=== PATIENT | male | born 1975 | race Caucasian/White ===

== ENCOUNTER 2016-12-19 12:34 | Emergency (ER) | payer MEDICARE, MEDICAID ==
[2016-12-19 12:43] VITALS: BP 142/86
--- NOTE | 2016-12-19 13:31 | ER Document Report ---
HPI - HPI Pain Level: 4 Context: Patient is a 41-year-old male who comes to the office complaining of chronic lower back pain without injury. Pain is been bothering for the last 6-8 months. Patient states that he did have an x-ray back in July with his family doctor but does not remember the results. The pain is made worse with lifting and twisting. Patient is still able to perform activities of daily living without any problems. Patient has been taking Tylenol for his pain with minimal relief. He has not had any loss of control of bowel or bladder. The pain does not radiate into his legs. He does not have any numbness or tingling. Patient denies any chest pain, trouble breathing, shortness of breath , palpitations, syncope, dizziness, fever, abdominal pain, N/V/D/C, dysuria, hematuria, flank pain, rash. - ROS Notes: REVIEW OF SYSTEMS: CONSTITUTIONAL : Denies fever, chills, or sweats. Denies recent illness. EENT: Denies eye, ear, throat, or mouth pain or symptoms. Denies nasal or sinus congestion or discharge. Denies throat, tongue, or mouth swelling or difficulty swallowing. CARDIOVASCULAR: Denies chest pain. Denies palpitations or racing or irregular heart beat. Denies ankle edema. RESPIRATORY: Denies cough, cold, or chest congestion. Denies shortness of breath, difficulty breathing, or wheezing. GASTROINTESTINAL: Denies abdominal pain or distention. Denies nausea, vomiting , or diarrhea. Denies blood in vomitus, stools, or per rectum. Denies black, tarry stools. Denies constipation. GENITOURINARY: Denies difficulty urinating, painful urination, burning, frequency, blood in urine, or discharge. MUSCULOSKELETAL: back pain as in HPI. SKIN: Denies rash, lesions or sores. HEMATOLOGIC : Denies easy bruising or bleeding. LYMPHATIC: Denies swollen, enlarged glands. NEUROLOGICAL: Denies confusion or altered mental status. Denies passing out or loss of consciousness. Denies dizziness or lightheadedness. Denies headache. Denies weakness or paralysis or loss of use of either side. Denies problems with gait or speech. Denies sensory loss, numbness, or tingling. Denies seizures. PSYCHIATRIC: Denies anxiety or stress. Denies depression, suicidal ideation, or homicidal ideation. ALL OTHER SYSTEMS REVIEWED AND NEGATIVE. Dictation was performed using [employer] voice recognition software - CARDIOVASCULAR Cardiovascular: DENIES: Chest pain - DERM Skin Color: [place] Past Medical History - Social History Smoking Status: Current Every Day Smoker Chew tobacco use (# tins/day): No Frequency of alcohol use: None Drug Abuse: None Family History: Reviewed & Not Pertinent Patient has suicidal ideation: No Patient has homicidal ideation: No Renal/ Medical History: Denies: Hx Peritoneal Dialysis Vertical Provider Document - CONSTITUTIONAL Notes: PHYSICAL EXAMINATION: GENERAL: Well-appearing, well-nourished and in no acute distress. HEAD: Atraumatic, normocephalic. NECK: Normal range of motion, supple without lymphadenopathy LUNGS: Breath sounds clear to auscultation bilaterally and equal. No wheezes rales or rhonchi. HEART: Regular rate and rhythm without murmurs, rubs, gallops. ABDOMEN: Soft, nontender, nondistended abdomen. No guarding, no rebound. No masses appreciated. Normal bowel sounds present. No CVA tenderness bilaterally. Back: No abrasion, laceration, ecchymosis, or deformity noted. FROM to passive/ active. Strength 5+/5. + tenderness to palpation of the L3-5 paraspinal muscles /facets. No SI jt tenderness. Musculoskeletal: FROM to LE's b/l to passive/active. Strength 5+/5. SLR negative b/l. Reflexes 2+ to patellar and achilles. Clonus negative. Extremities: No cyanosis, clubbing, or edema b/l. Peripheral pulses 2+. Capillary refill less than 3 seconds. NEUROLOGICAL: Cranial nerves grossly intact. Normal speech, normal gait. Normal sensory, motor exams PSYCH: Normal mood, normal affect. SKIN: Warm, Dry, normal turgor, no rashes or lesions noted. - INFECTION CONTROL TRAVEL OUTSIDE OF THE [place] IN LAST 30 DAYS: No - RESPIRATORY O2 Sat by Pulse Oximetry: 97 Course - Re-evaluation Re-evalutation: 12/19/16 14:13 Patient is a 41-year-old male who presents with ongoing chronic back pain. Vitals are stable with an elevated blood pressure reading. Patient is in no acute distress. PE is unremarkable except for point tenderness noted on exam for the lower back. After performing a Medical Screening Examination, I estimate there is LOW risk for EXPANDING OR RUPTURED ABDOMINAL AORTIC ANEURYSM, CAUDA EQUINA SYNDROME, EPIDURAL MASS LESION, or HERNIATED DISK CAUSING SEVERE SPINAL STENOSIS, thus I consider the discharge disposition reasonable. I have reevaluated this patient multiple times and no significant life threatening changes are noted. The patient and I have discussed the diagnosis and risks, and we agree with discharging home and close follow-up. We also discussed returning to the Emergency Department immediately if new or worsening symptoms occur with the understanding that symptoms and presentations can change. We have discussed the symptoms which are most concerning (e.g., saddle anesthesia, urinary or bowel incontinence or retention, changing or worsening pain) that necessitate immediate return. - Vital Signs Vital signs: Temp Pulse Resp BP Pulse Ox 97.9 F 83 16 142/86 H 97 12/19/16 12:42 12/19/16 12:42 12/19/16 13:21 12/19/16 12:42 12/19/16 12:42 Discharge - Discharge Clinical Impression: Low back pain, Elevated blood pressure reading Condition: Stable Disposition: HOME, SELF-CARE Instructions: Low Back Pain ([facility]), Ice Packs ([facility]), Warm Packs ([facility]) Additional Instructions: Chronic back pain: Light stretches daily Ice/heat throughout the day Massage may help Tylenol/meloxicam as needed for pain Return with any worsening pain, loss of control of bowel/bladder, numbness/ tingling, muscle weakness, fever, abdominal pain. F/u with your PCM in 2-3 days for a recheck and continued care for your back pain. Elevated blood pressure: Low sodium diet Smoking cessation as reviewed Routinely monitor blood pressure and keep a log at your home Report this information to your PCM at f/u appointment. Low Back Pain Three out of every four people will have an episode of disabling back pain during their lifetime. Most commonly the pain is due to straining of the muscles and ligaments in the low back. Usual treatment includes: (1) Rest on a firm surface. Avoid lying on your stomach. (2) Ice pack the painful area. After a few days, gentle heat may be used intermittently to relax the area, or ice packs can be continued. (3) Medication may be needed -- muscle relaxers and antiinflammatory medicines are commonly used. (4) As the back improves, exercises are prescribed to strengthen the back and abdominal muscles. Your doctor will advise you on the proper care for your back at each stage in your recovery. You may be better in a few days -- or healing may take several weeks. If new symptoms of a "herniated disc" (radiation of pain, numbness, or tingling down the back of the leg or weakness in the leg) occur, you should be re-examined. Further testing may be necessary. Prescriptions: Meloxicam 7.5 mg PO BID PRN #30 tablet PRN Reason:
== END 2016-12-19 14:13 | disposition home or self-care (01) ==
LOC: ER 12:34
DX: G89.29 Other chronic pain (principal); M54.5 Low back pain; R03.0 Elevated blood-pressure reading, without diagnosis of hypertension; F17.200 Nicotine dependence, unspecified, uncomplicated
CPT/HCPCS: 99283

== ENCOUNTER 2017-04-21 19:02 | Emergency (ER) | payer MEDICARE, MEDICAID ==
[2017-04-21 19:13] VITALS: BP 145/75
--- NOTE | 2017-04-21 19:19 | ER Document Report ---
ED Fall - General Chief Complaint: Fall Stated Complaint: FALL,NO KNOWN INJURIES Time Seen by Provider: 04/21/17 19:18 Mode of Arrival: Medic Information source: Patient Notes: 41 yo male [facility] iw[facility] right leg [employer] [place] [employer] [place]. Called EMS [place] when he got out his right leg from knee down was numb and caused him fall again, had to drag self with left leg. No pain anywhere. Occasional nausea since. No saddle anesthesia. Lives in [facility]-lives with father. TRAVEL OUTSIDE OF THE [place] IN LAST 30 DAYS: No - HPI Occurred: Just prior to arrival - Related data Allergies/Adverse Reactions: No Known Allergies Allergy (Verified 04/21/17 19:14) Home Medications: Current Home Medications No Home Medications 04/21/17 [History] Past Medical History - General Information source: Patient - Social History Smoking Status: Current Every Day Smoker Frequency of alcohol use: None Drug Abuse: None Occupation: unemployed Lives with: Parents - father Family History: Reviewed & Not Pertinent - Medical History Notes: slow learner-disability, chromosome problem Renal/ Medical History: Denies: Hx Peritoneal Dialysis Musculoskeltal Medical History: Reports Other - chronic intermittent back problems due to "my weight" Review of Systems - Review of Systems Constitutional: No symptoms reported EENT: No symptoms reported Cardiovascular: No symptoms reported Respiratory: No symptoms reported Gastrointestinal: No symptoms reported Genitourinary: No symptoms reported Male Genitourinary: No symptoms reported Musculoskeletal: No symptoms reported Skin: No symptoms reported Hematologic/Lymphatic: No symptoms reported Neurological/Psychological: See HPI Physical Exam - Vital signs Vitals: Resp 20 04/21/17 19:05 Interpretation: Normal, Tachycardic - 107 - General General appearance: Appears well, Alert In distress: None - HEENT Head: Normocephalic, Atraumatic Eyes: Normal Pupils: PERRL - Respiratory Respiratory status: No respiratory distress Chest status: Nontender Breath sounds: Normal Chest palpation: Normal - Cardiovascular Rhythm: Regular Heart sounds: Normal auscultation Murmur: No - Abdominal Inspection: Normal Distension: No distension Bowel sounds: Normal Tenderness: Nontender Organomegaly: No organomegaly - Back Back: Normal, Nontender - Extremities General upper extremity: Normal inspection, Nontender, Normal color, Normal ROM , Normal temperature General lower extremity: Tender - bruise anterior mid right tibia, Normal color , Normal ROM, Normal temperature, Normal weight bearing - pt able to bear weight and walkd after known negative xray. No: Komal's sign - Neurological Neuro grossly intact: Yes Cognition: Normal Orientation: AAOx4 [place] Coma Scale Eye Opening: Spontaneous [place] Coma Scale Verbal: Oriented [place] Coma Scale Motor: Obeys Commands [place] Coma Scale Total: 15 Speech: Normal Motor strength normal: LUE, RUE, LLE, RLE Sensory: Normal - Psychological Associated symptoms: Normal affect, Normal mood - Skin Skin Temperature: Warm Skin Moisture: Dry Skin Color: Normal Course - Re-evaluation Re-evalutation: 04/21/17 21:08 xray negative 04/21/17 21:16 pt able to walk without numbness. theo wrap given. pt states he will walk home, has motrin at home - Vital Signs Vital signs: Temp Pulse Resp BP Pulse Ox 98.3 F 107 H 18 145/75 H 99 04/21/17 19:11 04/21/17 19:11 04/21/17 19:11 04/21/17 19:11 04/21/17 19:11 Discharge - Discharge Clinical Impression: Contusion of right tibia, parathesia Condition: Good Disposition: HOME, SELF-CARE Instructions: Acetaminophen, Theo Wrap ([facility]), Contusion ([facility]), Use of Over-The- Counter Ibuprofen ([facility]) Additional Instructions: to er if worse theo wrap for comfort referral to orthopedics for persistant problems Referrals: LUCILA BURDICK MD [Primary Care Provider] - Follow up as needed KRISTEL SCHULTE MD [ACTIVE STAFF] - Follow up as needed
--- NOTE | 2017-04-21 20:40 | RADIOLOGY REPORT (SQ) ---
EXAM DESCRIPTION: TIBIA FIBULA RIGHT COMPLETED DATE/TIME: 04/21/2017 8:04 pm REASON FOR STUDY: injury mid right tibia COMPARISON: None. NUMBER OF VIEWS: Two views. TECHNIQUE: Two radiographic images acquired of the right tibia and fibula to include the knee and an kle in at least one projection. LIMITATIONS: None. FINDINGS: MINERALIZATION: Normal. BONES: No acute fracture or dislocation. No worrisome bone lesions. SOFT TISSUES: No obvious swelling or foreign body. OTHER: No other significant finding. IMPRESSION: NEGATIVE STUDY OF THE RIGHT TIBIA AND FIBULA. NO RADIOGRAPHIC EVIDENCE OF ACUTE INJURY. TECHNICAL DOCUMENTATION: JOB ID: [id number] [employer]- All Rights Reserved
[2017-04-21] MEDS ORDERED: IBUPROFEN 800 MG TABLET PO ONE (21:08)
[2017-04-21] MEDS ORDERED: ACETAMINOPHEN 325 MG TABLET PO ONE (21:08)
== END 2017-04-21 21:24 | disposition home or self-care (01) ==
LOC: ER 19:02
DX: S80.11XA Contusion of right lower leg, initial encounter (principal); R20.2 Paresthesia of skin; R11.0 Nausea; W17.2XXA Fall into hole, initial encounter; Y92.89 Other specified places as the place of occurrence of the external cause; F17.200 Nicotine dependence, unspecified, uncomplicated
CPT/HCPCS: 99283; 73590; A9270 ×2

== ENCOUNTER → 2018-02-09 | Outpatient (CLI) | payer MEDICARE, MEDICAID ==
--- NOTE | 2018-02-09 12:12 | RADIOLOGY REPORT (SQ) ---
EXAM DESCRIPTION: CHEST 2 VIEWS COMPLETED DATE/TIME: 02/09/2018 12:03 pm REASON FOR STUDY: COUGH,WHEEZING COMPARISON: 04/02/2008 EXAM PARAMETERS: NUMBER OF VIEWS: two views TECHNIQUE: Digital Frontal and Lateral radiographic views of the chest acquired. RADIATION DOSE: NA LIMITATIONS: none FINDINGS: LUNGS AND PLEURA: No opacities, masses or pneumothorax. No pleural effusion. MEDIASTINUM AND HILAR STRUCTURES: No masses or contour abnormalities. HEART AND VASCULAR STRUCTURES: Heart normal size. No evidence for failure. BONES: The osseous structures are stable in appearance. HARDWARE: None in the chest. OTHER: No other significant finding. IMPRESSION: NO ACUTE RADIOGRAPHIC FINDING IN THE CHEST. TECHNICAL DOCUMENTATION: JOB ID: [id number] [employer]- All Rights Reserved Reading location - IP/workstation name: [email or web address]
== END ==
LOC: RAD 11:24
PROVIDERS: ATTEND Family Medicine Geriatric Medicine
DX: R06.2 Wheezing (principal); R05 Cough
CPT/HCPCS: 71046

== ENCOUNTER → 2018-02-18 | Outpatient (CLI) | payer MEDICARE, MEDICAID | LOC: RT 11:42 | PROVIDERS: ATTEND Family Medicine Geriatric Medicine | DX: R06.2 Wheezing (principal); R05 Cough; F17.200 Nicotine dependence, unspecified, uncomplicated | CPT/HCPCS: 94010; 94727; 94729 ==

== ENCOUNTER → 2018-08-25 | Outpatient (CLI) | payer MEDICARE, MEDICAID ==
[2018-08-25 08:46] LABS: ALANINE AMINOTRANSFERASE 30 U/L (21-72); CHOLESTEROL 158.08 mg/dL (0-200); TRIGLYCERIDES 302 mg/dL (<150)
[2018-08-25 08:56] LABS: DIRECT LDL 83 mg/dL (<100)
[2018-08-25 09:09] LABS: VLDL CHOLESTEROL 60.4 mg/dL (10-31)
== END ==
LOC: LAB 08:02
PROVIDERS: ATTEND Family Medicine Geriatric Medicine
DX: E78.1 Pure hyperglyceridemia (principal); Z79.899 Other long term (current) drug therapy
CPT/HCPCS: 36415; 80061; 84460

== ENCOUNTER → 2018-10-23 | Outpatient (CLI) | payer MEDICARE, MEDICAID ==
[2018-10-23 09:24] LABS: ALANINE AMINOTRANSFERASE 32 U/L (21-72); CHOLESTEROL 154.09 mg/dL (0-200); TRIGLYCERIDES 418 mg/dL (<150)
[2018-10-23 09:34] LABS: DIRECT LDL 72 mg/dL (<100)
== END ==
LOC: LAB 08:40
PROVIDERS: ATTEND Family Medicine Geriatric Medicine
DX: E78.1 Pure hyperglyceridemia (principal)
CPT/HCPCS: 36415; 80061; 84460

== ENCOUNTER → 2018-12-22 | Outpatient (CLI) | payer MEDICARE, MEDICAID ==
[2018-12-22 10:02] LABS: ALANINE AMINOTRANSFERASE 33 U/L (21-72); CHOLESTEROL 158.47 mg/dL (0-200); TRIGLYCERIDES 269 mg/dL (<150)
[2018-12-22 10:13] LABS: DIRECT LDL 95 mg/dL (<100)
[2018-12-22 10:18] LABS: VLDL CHOLESTEROL 53.8 mg/dL (10-31)
== END ==
LOC: OD 08:21
PROVIDERS: ATTEND Family Medicine Geriatric Medicine
DX: E78.1 Pure hyperglyceridemia (principal); Z79.899 Other long term (current) drug therapy
CPT/HCPCS: 36415; 80061; 84460

== ENCOUNTER → 2019-02-23 | Outpatient (CLI) | payer MEDICARE, MEDICAID ==
[2019-02-23 11:08] LABS: CHOLESTEROL 155.07 mg/dL (0-200); TRIGLYCERIDES 328 mg/dL (<150)
[2019-02-23 11:19] LABS: DIRECT LDL 98 mg/dL (<100)
[2019-02-23 11:23] LABS: VLDL CHOLESTEROL 65.6 mg/dL (10-31)
== END ==
LOC: OD 09:49
PROVIDERS: ATTEND Family Medicine Geriatric Medicine
DX: E78.5 Hyperlipidemia, unspecified (principal); Z79.899 Other long term (current) drug therapy
CPT/HCPCS: 36415; 80061; 84460

== ENCOUNTER → 2019-05-12 | Outpatient (CLI) | payer MEDICARE, MEDICAID ==
[2019-05-12 09:23] LABS: CHOLESTEROL 116.64 mg/dL (0-200); TRIGLYCERIDES 223 mg/dL (<150)
[2019-05-12 09:37] LABS: DIRECT LDL 68 mg/dL (<100)
[2019-05-12 09:38] LABS: VLDL CHOLESTEROL 44.6 mg/dL (10-31)
== END ==
LOC: OD 08:20
PROVIDERS: ATTEND Family Medicine Geriatric Medicine
DX: E78.5 Hyperlipidemia, unspecified (principal); Z79.899 Other long term (current) drug therapy
CPT/HCPCS: 36415; 80061; 84460

== ENCOUNTER → 2019-06-24 | Outpatient (CLI) | payer MEDICARE, MEDICAID ==
[2019-06-24 10:05] LABS: CHOLESTEROL 155.86 mg/dL (0-200); TRIGLYCERIDES 239 mg/dL (<150)
[2019-06-24 10:16] LABS: DIRECT LDL 88 mg/dL (<100)
[2019-06-24 10:19] LABS: VLDL CHOLESTEROL 47.8 mg/dL (10-31)
== END ==
LOC: OD 08:55
PROVIDERS: ATTEND Family Medicine Geriatric Medicine
DX: E78.5 Hyperlipidemia, unspecified (principal); E78.1 Pure hyperglyceridemia; Z79.899 Other long term (current) drug therapy
CPT/HCPCS: 36415; 80061; 84460

== ENCOUNTER → 2019-09-03 | Outpatient (CLI) | payer MEDICARE, MEDICAID ==
[2019-09-03 10:43] LABS: CHOLESTEROL 114.44 mg/dL (0-200); TRIGLYCERIDES 193 mg/dL (<150)
[2019-09-03 10:54] LABS: DIRECT LDL 72 mg/dL (<100)
[2019-09-03 10:58] LABS: VLDL CHOLESTEROL 38.6 mg/dL (10-31)
== END ==
LOC: OD 09:21
PROVIDERS: ATTEND Family Medicine Geriatric Medicine
DX: E78.2 Mixed hyperlipidemia (principal); Z79.899 Other long term (current) drug therapy
CPT/HCPCS: 36415; 80061; 84460

== ENCOUNTER → 2019-12-16 | Outpatient (CLI) | payer MEDICARE, MEDICAID ==
[2019-12-16 11:49] LABS: ABSOLUTE BASOPHILS # (AUTO) 0.1 10^3/uL (0.0-0.2); ABSOLUTE EOSINOPHILS # (AUTO) 0.4 10^3/uL (0.0-0.6); ABSOLUTE LYMPHOCYTES (AUTO) 2.5 10^3/uL (0.5-4.7); ABSOLUTE MONOCYTES (AUTO) 0.6 10^3/uL (0.1-1.4); ABSOLUTE NEUT (AUTO) 5.2 10^3/uL (1.7-8.2); BASOPHILS % (AUTO) 1.2 % (0-2); HEMATOCRIT 42.8 % (37.9-51.0); HEMOGLOBIN 15.2 g/dL (13.5-17.0); LYMPHOCYTES % (AUTO) 28.6 % (13-45); MEAN CORPUSCULAR HEMOGLOBIN 29.7 pg (27.0-33.4); MEAN CORPUSCULAR HGB CONC 35.4 g/dL (32.0-36.0); MEAN CORPUSCULAR VOLUME 84 fl (80-97); MONOCYTES % (AUTO) 6.3 % (3-13); PLATELET COUNT 294 10^3/uL (150-450); RED CELL DISTRIBUTION WIDTH 13.6 % (11.5-14.0); SEGMENTED NEUTROPHILS % (AUTO) 58.9 % (42-78); TOTAL CELLS COUNTED % (AUTO) 100 %; WHITE BLOOD COUNT 8.8 10^3/uL (4.0-10.5)
[2019-12-16 12:14] LABS: ANION GAP 10 (5-19); BLOOD UREA NITROGEN 9 mg/dL (7-20); CALCIUM 9.8 mg/dL (8.4-10.2); CARBON DIOXIDE 28 mmol/L (22-30); CHLORIDE 98 mmol/L (98-107); CHOLESTEROL 151.63 mg/dL (0-200); GLUCOSE 90 mg/dL (75-110); POTASSIUM 4.7 mmol/L (3.6-5.0); TRIGLYCERIDES 476 mg/dL (<150)
[2019-12-16 12:25] LABS: DIRECT LDL 82 mg/dL (<100)
== END ==
LOC: OD 10:59
PROVIDERS: ATTEND Family Medicine Geriatric Medicine
DX: E78.5 Hyperlipidemia, unspecified (principal); J44.1 Chronic obstructive pulmonary disease with (acute) exacerbation; Z79.899 Other long term (current) drug therapy
CPT/HCPCS: 36415; 80048; 80061; 84460; 85025

== ENCOUNTER → 2020-02-16 | Outpatient (CLI) | payer MEDICARE, MEDICAID ==
[2020-02-16 10:47] LABS: ANION GAP 9 (5-19); BLOOD UREA NITROGEN 8 mg/dL (7-20); CALCIUM 9.8 mg/dL (8.4-10.2); CARBON DIOXIDE 27 mmol/L (22-30); CHLORIDE 102 mmol/L (98-107); GLUCOSE 82 mg/dL (75-110); POTASSIUM 5.1 mmol/L (3.6-5.0); TRIGLYCERIDES 264 mg/dL (<150)
[2020-02-16 10:48] LABS: CHOLESTEROL 118.02 mg/dL (0-200)
[2020-02-16 10:51] LABS: VLDL CHOLESTEROL 52.8 mg/dL (10-31)
[2020-02-16 10:57] LABS: DIRECT LDL 65 mg/dL (<100)
== END ==
LOC: OD 09:40
PROVIDERS: ATTEND Family Medicine Geriatric Medicine
DX: E87.1 Hypo-osmolality and hyponatremia (principal); E78.5 Hyperlipidemia, unspecified; J44.9 Chronic obstructive pulmonary disease, unspecified; Z79.899 Other long term (current) drug therapy
CPT/HCPCS: 36415; 80048; 80061; 84460

== ENCOUNTER → 2020-03-09 | Outpatient (CLI) | payer MEDICARE, MEDICAID | LOC: OD 09:52 | PROVIDERS: ATTEND Family Medicine Geriatric Medicine | DX: E87.5 Hyperkalemia (principal); Z79.899 Other long term (current) drug therapy | CPT/HCPCS: 36415; 84132 ==

== ENCOUNTER → 2020-06-02 | Outpatient (CLI) | payer MEDICARE, MEDICAID ==
[2020-06-02 11:50] LABS: ASPARTATE AMINO TRANSFERASE 48 U/L (17-59); CHOLESTEROL 118.79 mg/dL (0-200); TRIGLYCERIDES 321 mg/dL (<150)
[2020-06-02 12:01] LABS: DIRECT LDL 61 mg/dL (<100)
[2020-06-02 12:05] LABS: VLDL CHOLESTEROL 64.2 mg/dL (10-31)
== END ==
LOC: OD 10:28
PROVIDERS: ATTEND Family Medicine Geriatric Medicine
DX: E78.5 Hyperlipidemia, unspecified (principal); Z79.899 Other long term (current) drug therapy
CPT/HCPCS: 36415; 80061; 84450